=== PATIENT | female | born 1970 | race Caucasian/White ===

== ENCOUNTER → 2023-09-23 12:54 | Outpatient (REF) | payer SELFPAY | LOC: RAD 12:54 | PROVIDERS: ATTENDING PHYSICIAN Physician Assistant Medical | DX: E78.00 Pure hypercholesterolemia, unspecified (principal); Z82.49 Family history of ischemic heart disease and other diseases of the circulatory system | CPT/HCPCS: 75571 ==

== ENCOUNTER → 2024-04-07 10:03 | Outpatient (REF) | payer BC, SELFPAY | LOC: HWRCS 10:03 | PROVIDERS: ATTENDING PHYSICIAN Internal Medicine; FAMILY PHYSICIAN Physician Assistant Medical | DX: R60.0 Localized edema (principal) | CPT/HCPCS: 93306 ==

== ENCOUNTER 2024-07-19 08:24 | Emergency (ER) | payer BC, SELFPAY ==
[2024-07-19 08:29] VITALS: BP 168/103
[2024-07-19 09:12] VITALS: BMI 25.6
[2024-07-19 09:16] VITALS: BP 168/109
[2024-07-19] MEDS: ZOFRAN 4 MG IV (09:41)
[2024-07-19] MEDS: NSS 1000 IV (09:41)
--- NOTE | 2024-07-19 09:50 | ED.GENMED ---
History of Present Illness
General
Chief Complaint: Abdominal Symptoms
Source: patient
Exam Limitations: none
Time Seen by Provider: 07/19/24 09:04
Nursing documentation reviewed up to this point in time: agreed with
History of Present Illness
History of Present Illness:
54-year-old female past medical history of migraines asthma presenting to the emergency department today with concerns of room spinning dizziness made worse with motion improving with sitting still with associated nausea and vomiting this morning
also has some discomfort to her right ear. Had nausea vomiting diarrhea 5 days ago that seem to improve up until this morning. Denies any specific chest pain fevers nausea vomiting does have some mild upper respiratory congestion.
Past History
Past History
ED Past Medical History: Asthma
Social History
Personal:
Review of Systems
Review of Systems
Allergies reviewed?: Yes
All Other Systems: ROS reviewed and negative except as documented in HPI and ROS
Phy Exam
Physical Exam
Physical Exam:
GENERAL: Alert , in no apparent distress
EYE: pupils equal and reactive
NECK: Supple, no significant adenopathy.
ENT: Tonsillar lymphadenopathy no discomfort to the area of the mastoid o/p clr, mmm.
CARDIAC: Regular rate and rhythm .
LUNGS: Clear breath sounds bilaterally, no acute respiratory distress, no wheezes/rales/rhonchi
ABDOMEN: Soft, without focal tenderness, no r/g, no cvat
NEUROLOGICAL: Alert and oriented, no focal neuro deficits 5 out of 5 upper and lower extremity strength normal sensation with palpating bilaterally normal finger-nose and [id number] no pronator drift
SKIN: Warm and dry, skin intact.
MUSCULOSKELETAL: No edema, well perfused.
PSYCH: Normal and appropriate interaction.
Course
Orders/Labs/Results
Orders:
Orders
07/19/24 09:20
EKG [Electrocardiogram (*1)] Urgent
Reason for Study: Vertigo / Dizzy
EKG- Treatment ONCE
0.9% Sodium Chloride 1000 ml [Nss] 1,000 ml IV BOLUS
Meclizine [Antivert] 25 mg PO NOW STA
Ondansetron Injectable [Zofran] 4 mg IV NOW STA
Pt Eval And Treat Urgent
Treatment: vestibular
Activity Level: Ambulate
07/19/24 09:31
CBC/With Diff [Complete Blood Count/With Diff] Urgent
CMP [Comprehensive Metabolic Panel] Urgent
07/19/24 10:10
Dexamethasone Sod Phosphate [Decadron] 10 mg IV NOW STA
07/19/24 11:15
Metoclopramide [Reglan] 10 mg IV NOW STA
07/19/24 11:55
Meclizine [Antivert] 25 mg PO NOW STA
07/19/24 13:25
CT Head W/o Iv Contrast Urgent
Comment:
Reason For Exam: ongoing dizziness
Abnormal Lab Results
07/19/24
09:31
WBC 12.2 H 10^3/uL
(4.8-10.8)
Absolute Neuts (auto) 10.1 H 10^3/uL
(1.4-6.5)
Absolute Monos (auto) 0.8 H 10^3/uL
(0.1-0.6)
Neutrophils % 83.3 H %
(42.2-75.2)
Lymphocytes % 9.9 L %
(20.5-51.1)
Glucose 126 H mg/dl
(70-99)
07/19/24 09:31
07/19/24 09:31
Vital Signs
Initial and Last Documented VS:
Initial Vital Signs
Temp Pulse Resp BP Pulse Ox
97.4 F 80 18 168/103 99
07/19/24 08:29 07/19/24 08:29 07/19/24 08:29 07/19/24 08:29 07/19/24 08:29
Last Documented Vital Signs
Temp Pulse Resp BP Pulse Ox
97.4 F 80 18 145/91 93
07/19/24 08:29 07/19/24 08:29 07/19/24 08:29 07/19/24 15:00 07/19/24 14:49
MDM/Problems Addressed
MDM/Problems Addressed:
54-year-old female presenting to the emergency department today with concerns of worsening dizziness made worse with movement starting this morning associated nausea and vomiting secondary to this also some discomfort near her right ear. Has had
some ongoing congestion and did have nausea vomiting diarrhea few days ago that seem to improve until this morning. No diarrhea today. Patient does seem to have some inflammation to the upper airways upper respiratory tract. Symptoms seem to most
consistent consistent with a peripheral vertigo considering improving symptoms at rest worsening with some positioning. Able to walk here. Patient was seen by PT that felt neuritis was most likely. Patient was given multiple occasions including
Zofran, dexamethasone. Initially unable to tolerate meclizine. Was given Reglan then given meclizine with some improvement of symptoms able to tolerate by mouth head CT was performed that did not show any acute abnormalities. Otherwise patient
feels stable for outpatient management and follow-up. Symptoms do not seem to be consistent with central process but patient was given strict return precautions for any progression or worsening symptoms.
*Critical Care Note
Total Time (30-74mins, 75-104mins- exclusive of procedures): Not Applicable
ED Attending Note
-
Portions of this chart may have been created with voice recognition software.� Occasional wrong word or��sound alike� substitutions may have occurred due to the inherent limitations of voice recognition software.
Discharge Plan
Departure
Patient Disposition: Home (Routine Discharge)
Date of Disposition: 07/19/24
Time of Disposition: 15:20
Patient with high blood pressure during this ER visit?: No
Condition: Good
Covid-19: Not Applicable
Discharge Problem:
Vertigo, Sinusitis
Instructions: Vertigo (a Type of Dizziness) (DC)
Prescriptions:
New
methylprednisolone [Medrol (Michael)] 4 mg tablets,dose pack
See Rx Instructions .ROUTE .COMPLEX Qty: 21 0RF
Rx Instructions:
orally per package directions
amoxicillin-pot clavulanate 875-125 mg tablet
1 tab PO BID 7 Days Qty: 14 0RF
meclizine 25 mg tablet
25 mg PO BID PRN (Reason: dizziness) Qty: 10 0RF
ondansetron 4 mg tablet,disintegrating
4 mg PO Q6H PRN (Reason: nausea and vomiting) Qty: 7 0RF
No Action
Airmax
PRN (Reason: SOB)
Patient Comments:
has not used it this year
VENTOLIN HFA
PRN (Reason: sob)
Patient Comments:
has not used it yet this year
Vytorin
1 tab PO DAILY
Patient Comments:
pt does not know dose and has not taken it in months
Referrals:
Alex Mcgraw PA-C [Family Provider] -
Activity Restrictions/Additional Instructions:
You came to the emergency department today with concerns of dizziness nausea and vomiting. Here you had a reassuring assessment. This is likely peripheral vertigo. Please take the prescribed indications and follow-up closely with ENT. If
symptoms progress or worsening please return to the ER for further assessment.
Interventions
Interventions:
*Risk Screen - Suicide Last Done: 07/19/24 08:29
*General Assessment Last Done: 07/19/24 08:29
*Neglect/Abuse Screening Last Done: 07/19/24 08:29
ED- Fall Risk Assessment Last Done: 07/19/24 09:12
*ED COVID-19 Vaccine History Last Done: 07/19/24 09:12
LM-Jmjkft-Kbcsirwpmf Assessment Last Done: 07/19/24 09:12
ED- Neurological Assessment Last Done: 07/19/24 09:12
ED Swallowing Screen Last Done: 07/19/24 09:53
Discharge Date and Time
Print Language: MALDIVIAN
[2024-07-19 09:53] LABS: % Basophils 0.3 % (0-2); % Eosinophils 0.1 % (0-6); % Immature Granulocytes 0.2 % (0-0.5); % Lymphocytes 9.9 % (20.5-51.1); % Monocytes 6.2 % (1.7-9.3); % Neutrophils 83.3 % (42.2-75.2); Absolute Lymphocytes 1.2 10^3/uL (1.2-3.4); Absolute Monocytes 0.8 10^3/uL (0.1-0.6); Absolute Neutrophils 10.1 10^3/uL (1.4-6.5); Hematocrit 41.5 % (37.0-47.0); Hemoglobin 14.7 g/dL (12.0-16.0); Mean Corp Hgb Conc. 35.4 g/dL (33.0-37.0); Mean Corpuscular Hgb 30.1 pg (27.0-31.0); Mean Corpuscular Volume 84.9 fL (81.0-99.0); Mean Platelet Volume 10.1 fL (7.4-10.4); Nucleated Red Blood Cells % 0 %; Platelet Count 239 10^3/uL (130-400); Red Blood Cell Count 4.89 10^6/uL (4.20-5.40); Red Cell Dist. Width 12.1 % (11.5-14.5); White Blood Cell Count 12.2 10^3/uL (4.8-10.8)
[2024-07-19 10:09] LABS: ALT (SGPT) 29 U/L (0-35); AST (SGOT) 25 U/L (14-36); Albumin 4.4 g/dl (3.5-5.0); Alkaline Phosphatase 63 U/L (38-126); Blood Urea Nitrogen 12 mg/dl (7-17); Carbon Dioxide 29 mmol/L (22-30); Chloride 101 mmol/L (98-107); Estimated Creatinine Clearance 75 ml/min; Glucose 126 mg/dl (70-99); Potassium 3.7 mmol/L (3.5-5.1); Sodium 143 mmol/L (135-145); Total Bilirubin 0.7 mg/dl (0.2-1.3); eGFR > 60.00
[2024-07-19] MEDS: DECADRON 10 MG IV (10:14)
[2024-07-19] MEDS: ANTIVERT 25 MG PO ×2 (10:14→12:30)
[2024-07-19 10:16] VITALS: BP 168/109; PULSE 63; O2SAT 98
[2024-07-19] MEDS: REGLAN 10 MG IV (12:30)
[2024-07-19 13:16] VITALS: BP 116/72
[2024-07-19 14:49] VITALS: BP 142/85
[2024-07-19 15:00] VITALS: BP 145/91
== END 2024-07-19 15:29 | disposition home or self-care (01) ==
LOC: EMR 08:24
PROVIDERS: Physician Assistant; EMERGENCY PHYSICIAN Student in an Organized Health Care Education/Training Program; FAMILY PHYSICIAN Physician Assistant Medical
DX: J32.9 Chronic sinusitis, unspecified (principal); R42 Dizziness and giddiness; J45.909 Unspecified asthma, uncomplicated
CPT/HCPCS: 99285; 96374; 96375 ×2; 96361; 70450; 80053; 85025; 93005

== ENCOUNTER 2025-03-10 19:35 | Emergency (ER) | payer BC, SELFPAY ==
[2025-03-10 19:40] VITALS: BP 167/104
--- NOTE | 2025-03-10 19:47 | ED.GENMED ---
History of Present Illness
<Subhash Naik MD, Resident - Last Filed: 03/10/25 20:47>
General
Chief Complaint: Urinary Symptoms
Source: patient
Exam Limitations: none
Time Seen by Provider: 03/10/25 19:45
History of Present Illness
History of Present Illness:
This is a this is a 55-year-old female with history of migraines, asthma, hyperlipidemia, history of melanoma presenting in the emergency department with complaints of painful urination. Reported that symptoms started yesterday when she had some
burning while urination in addition to pain. Today she saw blood in the urine which prompted her to visit the emergency department. She reported when she was young she had frequent UTIs however she did not have any for the last 10 to 15 years.
Reports that she is not using any prescription medication however she does take aspirin 81 mg for prevention of any heart disease.
Denies any fevers or chills, denies any GI symptoms, denies any weakness, denies any headache, shortness of breath, chest pain. Denies any recent sick contacts or recent travel.
Past History
<Subhash Naik MD, Resident - Last Filed: 03/10/25 20:47>
Past History
ED Past Medical History: Asthma, Hypercholesterolemia and Other (Migraine,)
ED Past Surgical History: Other (Melanoma on face)
Patient has exhibited threatening behavior?: No
Social History
Tobacco: Non-smoker
Alcohol: None
Drug: None
Personal:
Living: with family
Family History
Family History: Other (Noncontributory)
Review of Systems
<Subhash Naik MD, Resident - Last Filed: 03/10/25 20:47>
Review of Systems
Allergies reviewed?: Yes
All Other Systems: ROS reviewed and negative except as documented in HPI and ROS
Constitutional: Denies fever or chills
EENT: Denies sore throat
Respiratory: Denies cough
Cardiac: Denies chest pain
ABD/GI: Denies abdominal pain
: Reports dysuria, difficulty voiding, urgency and dark urine; Denies flank pain
Musculoskeletal: Denies joint pain
Neurological: Denies dizzy
Phy Exam
<Subhash Naik MD, Resident - Last Filed: 03/10/25 20:47>
General Physical Exam
General Presentation: no apparent distress
General age: appears stated age
General Skin: warm
General Habitus: normal
General Mental: alert
Cardiovascular Exam
Cardiovascular Exam: regular rate/rhythm and no murmur
Pulmonary Exam
Pulmonary Exam: lungs clear, no respiratory distress and no cough
Gastrointestinal Exam
Gastrointestinal Exam: non tender, soft, non distended and no cva tenderness
Neurological Exam
Neurological Exam: alert and oriented x3
Course
<Subhash Naik MD, Resident - Last Filed: 03/10/25 20:47>
Orders/Labs/Results
Orders:
Orders
03/10/25 20:01
Urinalysis Reflex To Culture Urgent
Date Specimen was Collected: 03/10/25
Time Specimen was Collected: 19:59
Urine Microscopic Reflex Cult Urgent
Urine Culture Urgent
CAROL Source: U
Specimen Description:
Date Specimen was Collected: 03/10/25
Time Specimen was Collected: 19:59
03/10/25 20:30
Phenazopyridine HCl [Pyridium] 200 mg PO NOW STA
03/10/25 20:31
Sulfamethox./Trimethoprim Ds [Bactrim Ds 800 mg/160 mg] 1 tablet PO NOW STA
Abnormal Lab Results
03/10/25
20:01
Urine Ketones 1+ A
(Negative)
Ur Occult Blood Reflex 4+ A
(Negative)
Urine Nitrite (Reflex) Positive A
(Negative)
Leukocyte Esterase Rfl 3+ A
(Negative)
Urine RBC >100 A /HPF
(0-2)
Urine Albumin (Reflex) 3+ A
(Neg - Trace)
Vital Signs
Initial and Last Documented VS:
Initial Vital Signs
Temp Pulse Resp BP Pulse Ox
98.5 F 96 20 167/104 96
03/10/25 19:40 03/10/25 19:40 03/10/25 19:40 03/10/25 19:40 03/10/25 19:40
Last Documented Vital Signs
Temp Pulse Resp BP Pulse Ox
98.5 F 86 18 145/91 93
03/10/25 19:40 03/10/25 20:12 03/10/25 20:12 03/10/25 20:11 03/10/25 20:12
<Elian Lee, DO - Last Filed: 03/10/25 20:13>
Orders/Labs/Results
Orders:
Orders
03/10/25 20:01
Urinalysis Reflex To Culture Urgent
Date Specimen was Collected: 03/10/25
Time Specimen was Collected: 19:59
Urine Microscopic Reflex Cult Urgent
Urine Culture Urgent
CAROL Source: U
Specimen Description:
Date Specimen was Collected: 03/10/25
Time Specimen was Collected: 19:59
03/10/25 20:30
Phenazopyridine HCl [Pyridium] 200 mg PO NOW STA
03/10/25 20:31
Sulfamethox./Trimethoprim Ds [Bactrim Ds 800 mg/160 mg] 1 tablet PO NOW STA
Abnormal Lab Results
03/10/25
20:01
Urine Ketones 1+ A
(Negative)
Ur Occult Blood Reflex 4+ A
(Negative)
Urine Nitrite (Reflex) Positive A
(Negative)
Leukocyte Esterase Rfl 3+ A
(Negative)
Urine RBC >100 A /HPF
(0-2)
Urine Albumin (Reflex) 3+ A
(Neg - Trace)
Vital Signs
Initial and Last Documented VS:
Initial Vital Signs
Temp Pulse Resp BP Pulse Ox
98.5 F 96 20 167/104 96
03/10/25 19:40 03/10/25 19:40 03/10/25 19:40 03/10/25 19:40 03/10/25 19:40
Last Documented Vital Signs
Temp Pulse Resp BP Pulse Ox
98.5 F 86 18 145/91 93
03/10/25 19:40 03/10/25 20:12 03/10/25 20:12 03/10/25 20:11 03/10/25 20:12
<Subhash Naik MD, Resident - Last Filed: 03/10/25 20:47>
MDM/Problems Addressed
Differential Diagnosis Includes:
Hemorrhagic cystitis vs less likely kidney stone vs unlikely neoplastic
MDM/Problems Addressed:
check UA
PVR is 18ml on bladder scan.
Urinalysis with urine ketones, urine occult blood, urine nitrate, urine leukocyte esterase.
Will treat as a uncomplicated cystitis with Bactrim.
Pyridium for urinary discomfort.
A prescription was also sent to the pharmacy upon discharge. Patient aware that she is post take the medication for for 3 days.
Return precautions reviewed. She was also informed that if the culture shows any additional information the hospital will call you to provide additional recommendation.
Urologist information attached with the paperwork and recommended to follow-up with them outpatient.
Recommended to hold aspirin for 7 days. Vitals remained stable.
Shared decision was made with the patient for discharge home on antibiotics. Patient and her voices understanding and agree with the plan.
<Subhash Naik MD, Resident - Last Filed: 03/10/25 20:47>
*Pulse Oximetry
SaO2: 96
Oxygen Mode of Delivery: Room air
Patient hypoxic: no
*Critical Care Note
Total Time (30-74mins, 75-104mins- exclusive of procedures): Not Applicable
ED Attending Note
<Subhash Naik MD, Resident - Last Filed: 03/10/25 20:47>
-
Portions of this chart may have been created with voice recognition software.� Occasional wrong word or��sound alike� substitutions may have occurred due to the inherent limitations of voice recognition software.
<Elian Lee DO - Last Filed: 03/10/25 20:13>
ED Attending Note
Patient seen and examined by attending physician: Yes
I performed the substantive portion of visit, reviewed & personally made and approve the management plan that is documented in note by myself or CONNIE.: Yes
ED Attending Note:
I evaluated the patient bedside. The patient is well-appearing. She does take baby aspirin daily. She does report gross hematuria with dysuria. Is afebrile. She has a sensation that she cannot completely void, postvoid residual showed only 18
mL of urine. Will have her hold aspirin for the next week. She takes aspirin only for prophylaxis.
Discharge Plan
Departure
Patient Disposition: Home (Routine Discharge)
Date of Disposition: 03/10/25
Time of Disposition: 20:37
Patient with high blood pressure during this ER visit?: Yes
Condition: Fair
Discharge Problem:
Hemorrhagic cystitis
Instructions: Urinary Tract Infection, Adult (DC), Blood in the Urine (Hematuria), Adult (DC), BLOOD PRESSURE
Prescriptions:
New
sulfamethoxazole-trimethoprim [Bactrim DS] 800-160 mg tablet
1 tab PO BID Qty: 6 0RF
phenazopyridine [Pyridium] 100 mg tablet
100 mg PO TID PRN (Reason: Pain) Qty: 6 0RF
Referrals:
Marcus Nicole MD [Active, Urology] - Call in 1-3 days for appt
Activity Restrictions/Additional Instructions:
You were seen today at [facility] EMERGENCY DEPARTMENT with concerns of BURNING URINATION AND BLOOD IN THE URINE. WHILE YOU ARE IN THE HOSPITAL We PERFORMED A URINALYSIS WHICH SHOWED URINE KETONES, URINE OCCULT BLOOD, URINE NITRATES,
LEUKOCYTE ESTERASE, all consistent with urinary tract infection/hemorrhagic cystitis. You received 1 dose of Bactrim double strength as well as 1 dose of Pyridium in the emergency department. A prescription was sent to your pharmacy. Please
utilize this medication for 3 days. If you develop any fevers unable to urinate, please return to the emergency department. Please hold aspirin fo 7 days. Urologist information was also with these paperwork you can follow up with them outpatient
for additional recommendation.
Interventions
Interventions:
*Risk Screen - Suicide Last Done: 03/10/25 19:40
*General Assessment Last Done: 03/10/25 19:40
*Neglect/Abuse Screening Last Done: 03/10/25 19:40
*ED- Fall Risk Assessment Last Done: 03/10/25 19:40
*ED COVID-19 Vaccine History Last Done: 03/10/25 19:40
ED-Female Genitourinary Assessment Last Done: 03/10/25 20:12
Discharge Date and Time
Print Language: NIGERIAN
[2025-03-10 20:02] VITALS: BMI 25.9
[2025-03-10 20:11] VITALS: BP 145/91
[2025-03-10 20:22] LABS: Urine Character Cloudy (Clear)
[2025-03-10 20:26] LABS: Urine Red Blood Cell >100 /HPF (0-2)
[2025-03-10] MEDS: BACTRIM DS 800 MG/160 MG 1 TABLET PO (20:37)
== END 2025-03-10 20:54 | disposition home or self-care (01) ==
LOC: EMR 19:35
PROVIDERS: EMERGENCY PHYSICIAN Emergency Medicine
DX: N30.91 Cystitis, unspecified with hematuria (principal); J45.909 Unspecified asthma, uncomplicated; E78.00 Pure hypercholesterolemia, unspecified; Z79.82 Long term (current) use of aspirin
CPT/HCPCS: 99283; 81003; 81015; 87077; 87086

== ENCOUNTER → 2025-06-11 13:01 | Outpatient (REF) | payer BC, SELFPAY | LOC: HWWDC 13:01 | PROVIDERS: ATTENDING PHYSICIAN Nurse Practitioner Family; FAMILY PHYSICIAN Physician Assistant Medical | DX: Z12.31 Encounter for screening mammogram for malignant neoplasm of breast (principal) | CPT/HCPCS: 77063; 77067 ==